=== PATIENT | female | born 1960 | race Caucasian/White ===

== ENCOUNTER 2019-05-10 | Outpatient (CLI) | payer OTHER | END 2019-05-10 14:57 | disposition critical access hospital (66) | CPT/HCPCS: A0425; A0429 ==

== ENCOUNTER 2019-05-10 15:26 | Emergency (ER) | payer OTHER ==
[2019-05-10] MEDS ORDERED: ACETAMINOPHEN 325 MG TABLET PO STA (15:36)
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
[2019-05-10 18:03] VITALS: BP 105/75
== END 2019-05-10 17:38 | disposition home or self-care (01) ==
LOC: ED 15:26
DX: S60.212A Contusion of left wrist, initial encounter (principal); S20.211A Contusion of right front wall of thorax, initial encounter; V43.52XA Car driver injured in collision with other type car in traffic accident, initial encounter; W22.11XA Striking against or struck by driver side automobile airbag, initial encounter; Y92.410 Unspecified street and highway as the place of occurrence of the external cause
CPT/HCPCS: 29125; 71101; 73110; 73130; 99284; A9270